=== PATIENT | female | born 1965 | race Caucasian/White ===

== ENCOUNTER 2016-09-24 12:16 | Emergency (ER) | payer MEDICARE, OTHER ==
[~2016-09-24] VITALS: Ht 162.6 cm; Wt 65.8 kg
[2016-09-24] MEDS ORDERED: DEMEROL100 MG PO (12:31)
[2016-09-24] MEDS ORDERED: PROVENTIL HFA6.7 GM INH (12:32)
== END 2016-09-24 12:50 | disposition home or self-care (01) ==
LOC: ED 12:16 → EDBD 12:17 → ED 12:17
DX: F11.20 Opioid dependence, uncomplicated (principal); Z88.5 Allergy status to narcotic agent; Z88.8 Allergy status to other drugs, medicaments and biological substances; Z79.899 Other long term (current) drug therapy
CPT/HCPCS: 99283